=== PATIENT | male | born 1965 | race Two or more races ===

== ENCOUNTER 2024-11-01 15:21 | Inpatient (IN) | payer OTHER ==
[~2024-11-01] VITALS: Ht 175.3 cm; Wt 0.5 kg
[2024-11-01] MEDS ORDERED: TRAMADOL HCL50 MG PO (16:11)
[2024-11-01] MEDS ORDERED: 0.9 % SODIUM CHLORIDE 1,000 ML IV SCH ×2 (16:45→18:15)
[2024-11-01] MEDS ORDERED: MEPERIDINE HCL/PF 50 MG/ML VIAL IM ONE (16:45)
[2024-11-01 18:06] LABS: HEMATOCRIT 36.2 % (39.0-48.0); HEMOGLOBIN 12.4 g/dL (13-16.00); MEAN CELL VOLUME 86.1 fL (80.0-100.00); MEAN CORPUSCULAR HEMOGLOBIN 29.5 pg (27.00-32.0); MEAN CORPUSCULAR HGB CONC 34.2 g/dl (32.0-36.0); PLATELET COUNT 187 K/uL (150-450)
[2024-11-01] MEDS ORDERED: MORPHINE SULFATE 4 MG/ML VIAL IV PRN (18:15)
[2024-11-01] MEDS ORDERED: FAMOTIDINE/PF 20 MG/10 ML SYRINGE IV SCH (18:15)
[2024-11-01] MEDS ORDERED: ENOXAPARIN SODIUM 40 MG/0.4 ML SYRINGE SUBCUTANEO SCH (18:16)
[2024-11-01 18:36] LABS: ALBUMIN 3.1 gm/dL (3.4-5.0); BILIRUBIN TOTAL 1.32 mg/dL (0.3-1.2); CREATININE SERUM 1.14 mg/dL (0.70-1.30); GFR 65.52; GLOBULINA 3.1 G/DL (2.4-3.5); POTASSIUM 4.61 mEq/L (3.5-5.1); TOTAL PROTEIN 6.2 gm/dL (6.4-8.2)
[2024-11-01 18:37] LABS: INR 1.16; PARTIAL THROMBOPLASTIN TIME 30.2 SECONDS (22.0-34.0); PROTHROMBIN TIME 12.5 SECONDS (9.0-11.5)
[2024-11-01] MEDS ORDERED: FAMOTIDINE/PF 20 MG/2 ML VIAL ONE (19:44)
[2024-11-01] MEDS ORDERED: ENOXAPARIN SODIUM 40 MG/0.4 ML SYRINGE SUBCUTANEO ONE (19:44)
[2024-11-01 20:02] VITALS: BP 98/64; O2SAT 100
[2024-11-01] MEDS ORDERED: GABAPENTIN 300 MG CAPSULE PO SCH (21:00)
[2024-11-01] MEDS ORDERED: FAMOTIDINE/PF 20 MG/2 ML VIAL IV SCH (21:00)
[2024-11-02 00:27] LABS: PH,URINE 6.5 (5.0-8.0); URINE APPEARANCE Clear; URINE BILIRRUBIN Small (NEGATIVE); URINE BLOOD Negative; URINE COLOR Dark Yellow; URINE GLUCOSE Negative (NEGATIVE); URINE KETONE Trace (NEGATIVE); URINE LEUKOCYTE Trace; URINE NITRATE Negative; URINE PROTEIN Trace (NEGATIVE)
[2024-11-02 00:33] LABS: URINE BACTERIA 91.7 uL (0.0-1933); URINE CAST 2.65 uL (0.0-1.40); URINE EPITHELIAL CELLS 8.8 uL (0.0-38.8); URINE RBC 4.2 uL (0.0-20.8); URINE WBC 6.9 uL (0.0-23.2)
[2024-11-02] MEDS ORDERED: VANCOMYCIN HCL 1,000 MG VIAL IV SCH (05:21)
[2024-11-02] MEDS ORDERED: PIPERACILLIN/TAZOBACTAM SODIUM 3.375 GM in 0.9 % SODIUM CHLORIDE 100 ML IV SCH (06:00)
[2024-11-02 06:48] LABS: HEMATOCRIT 38.9 % (39.0-48.0); HEMOGLOBIN 12.7 g/dL (13-16.00); MEAN CELL VOLUME 88.6 fL (80.0-100.00); MEAN CORPUSCULAR HEMOGLOBIN 28.9 pg (27.00-32.0); MEAN CORPUSCULAR HGB CONC 32.6 g/dl (32.0-36.0); PLATELET COUNT 187 K/uL (150-450); RED BLOOD COUNT 4.39 M/uL (4.00-6.00); RED CELL DISTRIBUTION WIDTH 14.9 % (11.5-14.5)
[2024-11-02 07:18] LABS: ERYTHROCYTE SEDIMENTATION RATE 25 mm/hr
[2024-11-02 07:23] LABS: BILIRUBIN TOTAL 1.29 mg/dL (0.3-1.2); CREATININE SERUM 0.84 mg/dL (0.70-1.30); GFR 93.21; GLOBULINA 3.7 G/DL (2.4-3.5); MAGNESIUM 1.9 mg/dL (1.8-2.4); PHOSPHOROUS 2.4 mg/dL (2.5-4.9); POTASSIUM 3.87 mEq/L (3.5-5.1); TOTAL PROTEIN 6.7 gm/dL (6.4-8.2); TSH 1.47 uIU/mL (0.358-3.74)
[2024-11-02 07:32] LABS: C-REACTIVE PROTEIN 3.55 MG/DL (0.00-0.29)
[2024-11-02 08:23] VITALS: BP 119/75; O2SAT 98
[2024-11-02] MEDS ORDERED: CHLORHEXIDINE GLUCONATE 120 ML BOTTLE TOP SCH (13:08)
[2024-11-02] MEDS ORDERED: CHLORHEXIDINE GLUCONATE 120 ML BOTTLE TOP ONE (13:25)
[2024-11-02] MEDS ORDERED: ENOXAPARIN SODIUM 40 MG/0.4 ML SYRINGE SUBCUTANEO ONE (15:19)
[2024-11-02] MEDS ORDERED: VANCOMYCIN HCL 1,000 MG VIAL ONE (15:19)
[2024-11-02] MEDS ORDERED: LACTOBACILLUS ACIDOPHILUS 1 CAP CAP PO ONE (15:20)
[2024-11-02 15:34] VITALS: BP 136/76; O2SAT 100
[2024-11-02] MEDS ORDERED: LACTOBACILLUS ACIDOPHILUS 1 CAP CAP PO SCH (17:00)
[2024-11-02] MEDS ORDERED: DIPHENHYDRAMINE HCL 50 MG/ML VIAL 1ML IV ONE (20:15)
[2024-11-02] MEDS ORDERED: METHYLPREDNISOLONE SOD SUCC 40 MG VIAL IV ONE (20:15)
[2024-11-02] MEDS ORDERED: DIPHENHYDRAMINE HCL 50 MG/ML VIAL 1ML ONE (20:19)
[2024-11-02] MEDS ORDERED: METHYLPREDNISOLONE SOD SUCC 40 MG VIAL ONE (20:19)
[2024-11-02] MEDS ORDERED: PIPERACILLIN/TAZOBACTAM SODIUM 3.375 GM VIAL IV ONE (22:21)
[2024-11-02 23:38] VITALS: BP 126/73; O2SAT 96
[2024-11-03] MEDS ORDERED: VANCOMYCIN HCL 1,000 MG VIAL ONE ×3 (05:04→23:21)
[2024-11-03] MEDS ORDERED: PIPERACILLIN/TAZOBACTAM SODIUM 3.375 GM VIAL IV ONE (05:37)
[2024-11-03] MEDS ORDERED: TAMSULOSIN HCL 0.4 MG CAP PO SCH (09:00)
[2024-11-03 10:37] VITALS: BP 137/90; O2SAT 98
[2024-11-03] MEDS ORDERED: FAMOtidine 20 MG TABLET PO SCH (21:00)
[2024-11-04] VITALS: BP 125/76; O2SAT 97
[2024-11-04 09:09] VITALS: BP 138/80; O2SAT 94
[2024-11-04] MEDS ORDERED: BUPIVACAINE HCL/PF 0.25% 30ML VIAL InF SCH (14:15)
[2024-11-04] MEDS ORDERED: METRONIDAZOLE/SODIUM CHLORIDE 500 MG/100 ML PIGGYBACK IV ONE ×2 (14:15→16:57)
[2024-11-04] MEDS ORDERED: CEFTRIAXONE SODIUM 2,000 MG VIAL IV ONE (14:15)
[2024-11-04] MEDS ORDERED: SUGAMMADEX SODIUM 200 MG/2 ML VIAL IV ONE (14:15)
[2024-11-04] MEDS ORDERED: LIDOCAINE HCL 1%/EPINEPHRINE 20ML VIAL IJ ONE (14:15)
[2024-11-04] MEDS ORDERED: MORPHINE SULFATE 4 MG/ML VIAL IV ONE (14:40)
[2024-11-04] MEDS ORDERED: OxyCODONE HCL 5 MG TABLET (ROXICODONE) PO PRN (14:45)
[2024-11-04] MEDS ORDERED: ONDANSETRON HCL 2 MG/ML VIAL IV PRN (14:45)
[2024-11-04] MEDS ORDERED: MORPHINE SULFATE 4 MG/ML CARTRIDGE IV PRN (14:45)
[2024-11-04] MEDS ORDERED: VANCOMYCIN HCL 5 MG/ML REDILUIDO IV SCH (17:00)
[2024-11-04] MEDS ORDERED: METRONIDAZOLE/SODIUM CHLORIDE 500 MG/100 ML PIGGYBACK IV SCH (17:00)
[2024-11-04] MEDS ORDERED: TAMSULOSIN HCL 0.4 MG CAP PO SCH (17:00)
[2024-11-04] MEDS ORDERED: HYOSCYAMINE SULFATE 0.125 MG TAB.SUBL SL SCH (17:00)
[2024-11-04] MEDS ORDERED: ACETAMINOPHEN 500 MG GEL..CAP PO SCH (18:00)
[2024-11-04 18:05] VITALS: BP 122/62; O2SAT 95
[2024-11-04] MEDS ORDERED: CIPROFLOXACIN IN 5 % DEXTROSE 400 MG/200 ML PIGGYBAG IV SCH (21:00)
[2024-11-05 00:30] VITALS: BP 109/66; O2SAT 98
[2024-11-05 07:44] LABS: ALBUMIN 2.5 gm/dL (3.4-5.0); CALCIUM 8.2 mg/dL (8.5-10.1); CREATININE SERUM 0.82 mg/dL (0.70-1.30); GFR 95.83; MAGNESIUM 2.2 mg/dL (1.8-2.4); PHOSPHOROUS 2.5 mg/dL (2.5-4.9); POTASSIUM 3.66 mEq/L (3.5-5.1)
[2024-11-05 07:58] LABS: HEMATOCRIT 33.8 % (39.0-48.0); HEMOGLOBIN 11.5 g/dL (13-16.00); MEAN CELL VOLUME 87.4 fL (80.0-100.00); MEAN CORPUSCULAR HEMOGLOBIN 29.7 pg (27.00-32.0); PLATELET COUNT 181 K/uL (150-450); RED BLOOD COUNT 3.87 M/uL (4.00-6.00); RED CELL DISTRIBUTION WIDTH 14.9 % (11.5-14.5)
[2024-11-05] MEDS ORDERED: LACTOBACILLUS ACIDOPHILUS 1 CAP CAP PO SCH (09:00)
[2024-11-05 12:00] VITALS: BP 118/52; O2SAT 96
[2024-11-05 16:00] VITALS: BP 168/71; O2SAT 95
[2024-11-06 01:28] VITALS: BP 150/78; O2SAT 99
[2024-11-06 08:00] VITALS: BP 145/70; O2SAT 97
[2024-11-06 16:48] VITALS: BP 158/75; O2SAT 99
[2024-11-07] VITALS: BP 135/72; O2SAT 97
[2024-11-07 06:53] LABS: HEMATOCRIT 33.9 % (39.0-48.0); HEMOGLOBIN 11.3 g/dL (13-16.00); MEAN CELL VOLUME 87.8 fL (80.0-100.00); MEAN CORPUSCULAR HEMOGLOBIN 29.2 pg (27.00-32.0); MEAN CORPUSCULAR HGB CONC 33.2 g/dl (32.0-36.0); PLATELET COUNT 213 K/uL (150-450); RED BLOOD COUNT 3.86 M/uL (4.00-6.00); RED CELL DISTRIBUTION WIDTH 14.8 % (11.5-14.5)
[2024-11-07 07:51] LABS: ALBUMIN 2.3 gm/dL (3.4-5.0); BILIRUBIN TOTAL 1.28 mg/dL (0.3-1.2); CALCIUM 8.3 mg/dL (8.5-10.1); CREATININE SERUM 0.78 mg/dL (0.70-1.30); GFR 101.53; GLOBULINA 2.5 G/DL (2.4-3.5); POTASSIUM 3.75 mEq/L (3.5-5.1); TOTAL PROTEIN 4.8 gm/dL (6.4-8.2)
[2024-11-07 08:00] VITALS: BP 131/76; O2SAT 94
[2024-11-07 16:00] VITALS: BP 138/72; O2SAT 97
[2024-11-08] VITALS: BP 148/78; O2SAT 95
[2024-11-08 08:00] VITALS: BP 144/78; O2SAT 93
[2024-11-08 12:00] VITALS: BP 154/80; O2SAT 96
[2024-11-08 16:00] VITALS: BP 152/78; O2SAT 97
[2024-11-09 00:10] VITALS: BP 114/77; O2SAT 97
[2024-11-09 08:17] VITALS: BP 150/71; O2SAT 95
[2024-11-09] MEDS ORDERED: OxyCODONE HCL 5 MG TABLET (ROXICODONE) PO PRN (11:00)
[2024-11-09 17:00] VITALS: BP 131/72; O2SAT 95
[2024-11-10 00:40] VITALS: BP 135/81; O2SAT 98
[2024-11-10 08:16] VITALS: BP 129/78; O2SAT 95
[2024-11-10 16:00] VITALS: BP 128/68; O2SAT 95
[2024-11-11] VITALS: BP 124/71; O2SAT 95
[2024-11-11 08:32] VITALS: BP 117/71; O2SAT 98
[2024-11-11] MEDS ORDERED: FAMOTIDINE20 MG PO (15:04)
[2024-11-11] MEDS ORDERED: INTESTINEX680 M1 PO (15:04)
[2024-11-11] MEDS ORDERED: TAMS0.4C PO (15:04)
[2024-11-11] MEDS ORDERED: CIPRO500 MG PO (15:04)
[2024-11-11] MEDS ORDERED: GABAPENTIN300 MG PO (15:04)
[2024-11-11] MEDS ORDERED: TRAMADOL HCL50 MG PO (15:04)
[2024-11-11] MEDS ORDERED: xarelto PO (15:04)
[2024-11-11] MEDS ORDERED: METRONIDAZOLE500 MG PO (15:04)
[2024-11-11 16:00] VITALS: BP 149/66; O2SAT 95
== END 2024-11-11 22:14 | disposition home or self-care (01) | DRG 330 ==
LOC: ER 15:24 → SURH 19:45 → SEC-K 19:45 → O/R 11-02 08:41 → SEC-K 11-02 08:42 → SURG 11-02 23:33 → SEC-K 11-03 00:45 → SURH 11-03 15:35
PROVIDERS: Emergency Medicine; Surgery; ADMIT Internal Medicine Geriatric Medicine; ATTEND Internal Medicine Geriatric Medicine
PROC: BW21YZZ Computerized Tomography (CT Scan) of Abdomen and Pelvis using Other Contrast (ICD-10-PCS; 2024-11-02)
PROC: 02HV33Z Insertion of Infusion Device into Superior Vena Cava, Percutaneous Approach (ICD-10-PCS; 2024-11-02)
PROC: 3E04329 Introduction of Other Anti-infective into Central Vein, Percutaneous Approach (ICD-10-PCS; 2024-11-02)
PROC: 8E0ZXY6 Isolation (ICD-10-PCS; 2024-11-02)
PROC: 0DNW4ZZ Release Peritoneum, Percutaneous Endoscopic Approach (ICD-10-PCS; 2024-11-04)
PROC: 0T9B70Z Drainage of Bladder with Drainage Device, Via Natural or Artificial Opening (ICD-10-PCS; 2024-11-04)
PROC: 0D1L4Z4 Bypass Transverse Colon to Cutaneous, Percutaneous Endoscopic Approach (ICD-10-PCS; principal; 2024-11-04 12:00)
PROC: B54BZZZ Ultrasonography of Right Lower Extremity Veins (ICD-10-PCS; 2024-11-11)
DX: C20 Malignant neoplasm of rectum (principal); C79.89 Secondary malignant neoplasm of other specified sites; K62.6 Ulcer of anus and rectum; L98.419 Non-pressure chronic ulcer of buttock with unspecified severity; L08.89 Other specified local infections of the skin and subcutaneous tissue; B96.89 Other specified bacterial agents as the cause of diseases classified elsewhere; K66.0 Peritoneal adhesions (postprocedural) (postinfection); N50.89 Other specified disorders of the male genital organs; K62.89 Other specified diseases of anus and rectum; R33.9 Retention of urine, unspecified; G89.3 Neoplasm related pain (acute) (chronic); M79.652 Pain in left thigh; M25.562 Pain in left knee; R60.0 Localized edema; D64.89 Other specified anemias; Z92.21 Personal history of antineoplastic chemotherapy; Z92.3 Personal history of irradiation; Z74.01 Bed confinement status